=== PATIENT | female | born 1940 | race Asian ===

== ENCOUNTER 2017-06-18 18:11 | Emergency (ER) | payer MEDICARE, OTHER ==
[~2017-06-18] VITALS: Ht 149.9 cm; Wt 77.2 kg
[~2017-06-18 18:11] MED LIST: ALLOPURINOL100 MG PO; AMLODIPINE5 MG PO; ASPIRIN EC81 MG PO; BACTRIM DS1 TAB PO; BUMETANIDE1 MG PO; CIPROFLOXACN500 MG PO; DIOVAN80 MG PO; GABAPENTIN100 MG PO; HUMULIN 70/30 SC; KEFLEX500 M1 PO; METOLAZONE5 MG PO; METRONIDAZOL500 MG PO; NIFEDIPINE ER60 M1 PO; NORVASC2.5 MG PO; NORVASC5 MG PO; NOVOLIN 70/30 SC; PARICALCITOL2 MCG PO; PERCOCET 5/321 COMBO PO; PHOSLO667 M1 PO; PRILOSEC40 MG PO; PROCARDIA XL30 MG PO; SODIUM BICARBI650 MG PO; ULTRAM50 M1 PO; VITAMIN D31000 UNI1 PO; VITAMIN D50000 UN1 PO; ZANTAC 150 PO; ZOCOR20 M1 PO; ZOCOR20 MG PO; ZOFRAN ODT4 MG PO
[2017-06-18 20:21] LABS: HEMATOCRIT 39.3 % (37.0-47.0); HEMOGLOBIN 12.6 g/dl (12.0-16.0); IMMATURE GRANULOCYTES 2.9 % (0.0-1.0); MEAN CELL VOLUME 96.3 fL CALC (80.0-100.0); MEAN CORPUSCULAR HGB 30.9 pG CALC (26.0-32.0); MEAN CORPUSCULAR HGB CONC 32.1 g/L CALC (32.0-36.0); NEUT# 10.12 thou/uL (2.00-7.15); RED BLOOD COUNT 4.08 mill/uL (4.20-5.60); RED CELL DISTRI WIDTH 13.7 % (11.5-15.5)
[2017-06-18 20:34] LABS: ALBUMIN 3.8 g/dL (3.2-5.0); BILIRUBIN, TOTAL 0.4 mg/dL (0.0-1.4); CALCIUM 9.2 mg/dL (8.4-10.2); CREATININE 3.1 mg/dL (0.5-1.0); POTASSIUM 4.1 mmol/l (3.5-5.1); TOTAL PROTEIN 6.7 g/dL (6.3-8.2)
[2017-06-18 22:44] VITALS: BP 144/66
== END 2017-06-18 22:44 | disposition home or self-care (01) ==
LOC: ED 18:11
PROVIDERS: Emergency Medicine
DX: R55 Syncope and collapse (principal); R42 Dizziness and giddiness; I12.0 Hypertensive chronic kidney disease with stage 5 chronic kidney disease or end stage renal disease; N18.6 End stage renal disease; Z99.2 Dependence on renal dialysis; Y92.531 Health care provider office as the place of occurrence of the external cause

== ENCOUNTER 2017-08-29 23:05 | Emergency (ER) | payer MEDICARE, OTHER ==
[~2017-08-29] VITALS: Ht 149.9 cm; Wt 75.6 kg
[2017-08-30 00:13] VITALS: BP 158/73
== END 2017-08-30 00:20 | disposition home or self-care (01) ==
LOC: ED 23:05
DX: M79.622 Pain in left upper arm (principal); R22.32 Localized swelling, mass and lump, left upper limb; I12.0 Hypertensive chronic kidney disease with stage 5 chronic kidney disease or end stage renal disease; N18.6 End stage renal disease; Z99.2 Dependence on renal dialysis

== ENCOUNTER 2017-11-13 15:45 | Observation (INO) | payer MEDICARE, OTHER ==
[~2017-11-13] VITALS: Ht 149.9 cm; Wt 56.4 kg
[~2017-11-13 15:45] MED LIST changes: +CLONIDINE0.1 MG PO; +METOPROL TAR25 MG PO
--- NOTE | 2017-11-13 15:46 | NUR ---
AMBULATED TO ER BY DR DANIEL'S STAFF FOR ALTERED MENTAL STATUS. PT PLEASANT. DOES NOT KNOW WHY IS IS HERE OR WHY SHE WENT TO DR DANIEL TODAY. WHEN QUESTIONED, SHE SMILES AND SYAS "I DONT KNOW"...
[2017-11-13 16:19] LABS: HEMATOCRIT 35.5 % (37.0-47.0); HEMOGLOBIN 12.2 g/dl (12.0-16.0); IMMATURE GRANULOCYTES 0.3 % (0.0-1.0); MEAN CELL VOLUME 88.3 fL CALC (80.0-100.0); MEAN CORPUSCULAR HGB 30.3 pG CALC (26.0-32.0); MEAN CORPUSCULAR HGB CONC 34.4 g/L CALC (32.0-36.0); NEUT# 5.72 thou/uL (2.00-7.15); RED BLOOD COUNT 4.02 mill/uL (4.20-5.60); RED CELL DISTRI WIDTH 12.9 % (11.5-15.5)
--- NOTE | 2017-11-13 16:30 | NUR ---
PATIENT ALERT AND ORIENTED TO SELF AND PLACE. WHEN QUESTIONS ABOUT TODAY'S DATE PATIENT ANSWERS "[birth year]" (PATIENT'S BIRTHDAY). MOVES ALL EXTREMITIES WELL, FIRM GRASP. LUNG SOUNDS CLEAR BILATERALLY. LAB AT BEDSIDE.
[2017-11-13 16:38] LABS: ALBUMIN 3.9 g/dL (3.2-5.0); BILIRUBIN, TOTAL 0.8 mg/dL (0.0-1.4); MAGNESIUM 1.9 mg/dL (1.6-2.3); POTASSIUM 4.2 mmol/l (3.5-5.1); TOTAL PROTEIN 7.5 g/dL (6.3-8.2)
[2017-11-13 16:40] LABS: CREATININE 2.3 mg/dL (0.5-1.0)
--- NOTE | 2017-11-13 16:42 | NUR ---
CALL PLACED TO 'S OFFICE, SPOKE TO PETER, REQUEST TO HAVE RX LIST SENT TO ED FAX.
[2017-11-13] MEDS ORDERED: TRAMADOL HCL50 MG PO (17:01)
[2017-11-13] MEDS ORDERED: TRESIBA FL200 UNIT/M SC (17:03)
[2017-11-13] MEDS ORDERED: NOVOLOG FL100 UNIT/M SC (17:04)
--- NOTE | 2017-11-13 17:20 | NUR ---
PATIENT RESTING ON STRETCHER ALERT AND ORIENTED TO SELF AND PLACE. RESPIRATIONS EVEN AND UNLABORED. UPDATED ON PLAN OF CARE AND WAIT TIME. PATIENT REQUESTING TO SPEAK TO DAUGHTER, CALL PLACED TO LARA BOLTON. NO ANSWER, LEFT VOICEMAIL. WILL CONTINUE TO MONITOR PATIENT. NO ATTEMPTS MADE TO GET OU OF BED/ SIDERAILES UP ON BOTH SIDES.
--- NOTE | 2017-11-13 17:48 | NUR ---
PATIENT AMBULATES TO BATHROOM WITH STANDBY ASSIST 50 ML OF DARK YELLOW CLOUDY URINE COLLECTED FOR URINE SAMPLE. BACK TO ROOM, ASSISTED ONTO STRETCHER. CALL LIGHT WITHIN REACH.
[2017-11-13 17:50] LABS: URINE BLOOD DIPSTICK MODERATE (NEGATIVE); URINE COLOR YELLOW; URINE GLUCOSE - DIPSTICK >=1000 mg/dL (NEGATIVE); URINE KETONE TRACE mg/dL (NEGATIVE); URINE LEUK ESTERASE NEGATIVE (NEGATIVE); URINE NITRITE - DIPSTICK NEGATIVE (Negative); URINE PROTEIN - DIPSTICK >=300 mg/dL (NEG-TRACE); URINE UROBILINOGEN - DIPSTICK 0.2 E.U./dL (0.2)
--- NOTE | 2017-11-13 17:51 | NUR ---
AV FISTULA TO LEFT UPPER ARM. LIMB ALERT BAND PLACED TO LEFT WRIST.
[2017-11-13 17:52] LABS: URINE BILIRUBIN - DIPSTICK NEGATIVE (NEGATIVE); URINE CLARITY SL CLOUDY
[2017-11-13 17:57] LABS: URINE SQUAMOUS EPITHELIAL CELL MANY EPI/hpf (0-FEW)
--- NOTE | 2017-11-13 17:58 | NUR ---
REPORT CALLED TO [facility]. REQUEST 15 MINUTES TO DELAY TRANSPORT.
--- NOTE | 2017-11-13 18:05 | NUR ---
MANUAL BP 150/70 HR 55. PATIENT MEDICATED WITH 50 MG OF METOPROLOL PO GIVEN PER HOME MED.
--- NOTE | 2017-11-13 18:15 | NUR ---
PATIENT TRANSPORTED TO [facility] WITH TELE IN PLACE. BEDSIDE REPORT GIVEN TO [facility]. CARE RELINQUISHED.
[2017-11-13 18:24] VITALS: BP 171/54
--- NOTE | 2017-11-13 18:26 | NUR ---
ASSESSMENT DONE RESPS EVEN AND UNLABORED. TELE IN PLACE. PT IS A&O X2 ,TO SELF AND PLACE. PT IS CONFUSED. PT HAS A LEFT ARM FISTULA THAT THRILL AND HEAR THE BRUIT. SAFETY PRECAUTIONS REINFORCED AND CALL LIGHT IN REACH.
--- NOTE | 2017-11-13 19:45 | NUR ---
PT RESTING IN BED AWAKE. DAUGHTER IN ROOM. PT IS ALERT AND ORIENTED X3. PERRLA. SHIFT ASSESSMENT COMPLETED AT THIS TIME. IV PATENT. TELE IN PLACE. CALL LIGHT IN REACH.PT VERBALIZED UNDERSTANDING OF CALL LIGHT. PLAN OF CARE REVIEWD WITH PT AND DAUGHTER. WILL CONTINUE TO MONITOR
[2017-11-13 20:03] VITALS: BP 139/82
--- NOTE | 2017-11-13 23:15 | NUR ---
ER CALLED AND STATED THAT PT WAS OFF OF TELEMETRY. PT HAD TAKEN TELE BOX OFF AND PLACED IT ON BATHROOM COUNTER. PT STATES THAT SHE DOES NOT REMEMBER DOING THIS. INSTRUCTED PT THAT TELE HAD TO STAY IN PLACE. PT VERBALIZED UNDERSTANDING. TURNED BED ALARM ON FOR PT SAFETY. CALL LIGHT IN REACH. WILL CONTINUE TO MONITOR
[2017-11-14] VITALS (7 sets, daily range): BP systolic 120–207; BP diastolic 40–84
--- NOTE | 2017-11-14 | NUR ---
PT RESTING IN BED WITH EYES CLOSED. RESP ARE EVEN AND UNLABORED. TELE IN PLACE. NO DISTRESS NOTED. BED ALARM IN PLACE. WILL CONTINUE TO MONITOR
--- NOTE | 2017-11-14 04:00 | NUR ---
PT RESTING IN BED WITH EYES CLOSED. RESP ARE EVEN AND UNLABORED. NO DISTRESS NOTED. CALL LIGHT IN REACH. WILL CONTINUE TO MONITOR
--- NOTE | 2017-11-14 07:11 | NUR ---
REPORT RECEIVED BY FRANK. PT IS SLEEPING ON HER LEFT SIDE WITH NO S/S OF DISTRESS NOTED. CALL LIGHT IN REACH.
--- NOTE | 2017-11-14 08:00 | NUR ---
PT IS SITTING IN THE SIDE OF THE BED. ASSESSMENT DONE TELE IN PLACE.RESPS EVEN AND UNLABORED. PT DENIES PAIN AT THIS TIME. # 20 RAC THAT APPEARS HEALTHY. LEFT ARM FISTULA THRILL+ AND BRUIT +. SAFETY PRECAUTIONS REINFORCED AND CALL LIGHT IN REACH. BED ALARM IN PLACE FOR SAFETY.
[2017-11-14 09:09] LABS: MAGNESIUM 1.9 mg/dL (1.6-2.3); POTASSIUM 3.9 mmol/l (3.5-5.1)
[2017-11-14 09:12] LABS: CREATININE 3.4 mg/dL (0.5-1.0)
--- NOTE | 2017-11-14 12:01 | NUR ---
PT IS SITTING IN RECLINER EATING HER LUNCH WITH NO S/S OF DISTRESS NOTED. PT DENIES NEEDS AT THIS TIME. CALL LIGHT IN REACH.
--- NOTE | 2017-11-14 13:15 | NUR ---
DR. BANKS AT BEDSIDE TO ASSESS PT.
--- NOTE | 2017-11-14 16:03 | NUR ---
PT IS RESTING IN ON HER LEFT SIDE WITH NO S/S OF DISTRESS NOTED. CALL LIGHT IN REACH.
--- NOTE | 2017-11-14 19:30 | NUR ---
PATIENT APPEARS SLEEPING POSITIONED ON HER SIDE WITH EYES CLOSED. BED ALARM IN PLACE FOR PATIENT SAFETY. CALL LIGHT IN REACH. WILL CONT TO MONITOR.
--- NOTE | 2017-11-14 21:29 | NUR ---
BP-207/62, [id number] WITH APRESOLINE 10MG IVP ORDERED FOR HTN. [id number]-COVERED WITH NOVALOG PER [facility] COVERAGE. ASSISTED TO BR TO VOID MODERATE AMT OF ELLEN URINE-STEADY GAIT. HS SNACK PROVIDED. BED ALARM IN PLACE FOR PATIENT SAFETY. REINFORCED SAFETY PRECAUTIONS. CALL LIGHT IN REACH. WILL CONT TO MONITOR.
--- NOTE | 2017-11-14 22:15 | NUR ---
BP-127/40, HR-64. RESTING IN BED. NO COM[PLAINTS/ IV SITE TO RIGHT AC INTACT-APPEARS HEALTHY. BED ALARM IN PLACE. CALL IGHT IN REACH. WILL CONT TO MONITOR.
--- NOTE | 2017-11-15 | NUR ---
BED ALARM GOING OFF-PATIENT REMAINS CONFUSED TO PLACE AND TIME. ATTEMPT TO REORIENT PATIENT WITH LITTLE SUCCESS. PATIENT REMAINS PLEASANT-WANTS TO SIT UP IN CHAIR. ASSISTED TO CHAIR AND ALARM PLACE FOR PATIENT SAFETY. CALL LIGHT IN REACH. WILL CONT TO MONITOR.
[2017-11-15 00:15] VITALS: BP 145/58
--- NOTE | 2017-11-15 04:04 | NUR ---
PATIENT BACK IN BED AT THIS TIME RESTING QUIETLY AT THIS TIME. BED ALARM IN PLACE FOR PATIENT SAFETY. CALL LIGHT IN REACH. WILL CONT TO MONITOR.
[2017-11-15 04:40] VITALS: BP 149/46
[2017-11-15 05:21] LABS: CREATININE 4.3 mg/dL (0.5-1.0); POTASSIUM 3.7 mmol/l (3.5-5.1)
[2017-11-15 05:23] LABS: ALBUMIN 2.8 g/dL (3.2-5.0)
[2017-11-15 07:43] VITALS: BP 151/44
--- NOTE | 2017-11-15 07:43 | NUR ---
PT RESTING IN BED, NO SIGNS OF DISTRESS NOTED, RESP EVEN AND UNLABORED. PT ALERT TO SELF. ASSESSMENT COMPLETED, BED ALARM X1, CONTINUE TO MONITOR.
--- NOTE | 2017-11-15 07:57 | NUR ---
PT RESTING IN BED EASILY AROUSED TO VERBAL STIMULI, ALERT TO SELF. VITALS OBTAINED, MEDICATED PER AUG. PT HAS A AV FISTULA TO MACHO TRHILL+,BRUITT+ LAST TX 11/13/17. ASSESSMENT COMPLETED AT THIS TIME, PT SAT UP TO EAT BREAKFAST, VOICES NO NEEDS OR COMPLAINTS AT THIS TIME, CALL LIGHT IN REACH, BED ALARM X1, CONTINUE TO MONITOR.
[2017-11-15 09:04] VITALS: BP 151/44
--- NOTE | 2017-11-15 10:47 | NUR ---
ORDERS FOR DISCHARGE, IV SITE REMOVED, CATHETER INTACT. PT TOLERATED WELL. BED ALARM IN PLACE, TRANSPORT CALLED FOR PT TO BE TAKEN TO DIALYSIS. ETA 1100. CONTINUE TO MONITOR.
--- NOTE | 2017-11-15 12:10 | NUR ---
Discharge instructions given. Patient verbalizes understanding of same. Discharged in stable condition via Wheelchair to Home with *Other. All belongings sent with pt.
== END 2017-11-15 11:00 | disposition home health service (06) ==
LOC: ED 15:45 → ED-I 17:14 → ED 17:25 → MS2 17:26
PROVIDERS: Family Medicine; Internal Medicine; Nurse Practitioner Family; ADMIT Internal Medicine; ATTEND Internal Medicine
DX: G93.40 Encephalopathy, unspecified (principal); E11.22 Type 2 diabetes mellitus with diabetic chronic kidney disease; I12.0 Hypertensive chronic kidney disease with stage 5 chronic kidney disease or end stage renal disease; N18.6 End stage renal disease; E78.5 Hyperlipidemia, unspecified; Z99.2 Dependence on renal dialysis; Z79.4 Long term (current) use of insulin

== ENCOUNTER 2017-11-17 16:22 | Emergency (ER) | payer MEDICARE, OTHER ==
[~2017-11-17] VITALS: Ht 149.9 cm; Wt 59.0 kg
[~2017-11-17 16:22] MED LIST changes: +NOVOLOG FL100 UNIT/M SC; +TRAMADOL HCL50 MG PO; +TRESIBA FL200 UNIT/M SC
[2017-11-17 17:00] LABS: HEMATOCRIT 31.7 % (37.0-47.0); HEMOGLOBIN 10.7 g/dl (12.0-16.0); IMMATURE GRANULOCYTES 0.2 % (0.0-1.0); MEAN CELL VOLUME 90.6 fL CALC (80.0-100.0); MEAN CORPUSCULAR HGB 30.6 pG CALC (26.0-32.0); MEAN CORPUSCULAR HGB CONC 33.8 g/L CALC (32.0-36.0); NEUT# 3.54 thou/uL (2.00-7.15); RED BLOOD COUNT 3.5 mill/uL (4.20-5.60)
[2017-11-17 17:12] LABS: BILIRUBIN, TOTAL 0.6 mg/dL (0.0-1.4); CREATININE 4.6 mg/dL (0.5-1.0); MAGNESIUM 1.9 mg/dL (1.6-2.3); TOTAL PROTEIN 6.4 g/dL (6.3-8.2)
[2017-11-17 17:15] LABS: INTERNATIONAL NORMALIZED RATIO 0.9 RATIO (0.7-1.3)
[2017-11-17 17:42] LABS: TSH, 3RD GENERATION 1.62 uIU/mL (0.47 - 4.68)
[2017-11-17 17:50] LABS: ALBUMIN 3.4 g/dL (3.2-5.0); POTASSIUM 5.3 mmol/l (3.5-5.1)
[2017-11-17 18:17] LABS: URINE BILIRUBIN - DIPSTICK NEGATIVE (NEGATIVE); URINE BLOOD DIPSTICK SMALL (NEGATIVE); URINE COLOR YELLOW; URINE GLUCOSE - DIPSTICK >=1000 mg/dL (NEGATIVE); URINE KETONE NEGATIVE (NEGATIVE); URINE LEUK ESTERASE NEGATIVE (NEGATIVE); URINE NITRITE - DIPSTICK NEGATIVE (Negative); URINE PROTEIN - DIPSTICK >=300 mg/dL (NEG-TRACE); URINE UROBILINOGEN - DIPSTICK 0.2 E.U./dL (0.2)
[2017-11-17 18:18] LABS: URINE CLARITY CLEAR
[2017-11-17 18:24] LABS: URINE SQUAMOUS EPITHELIAL CELL FEW EPI/hpf (0-FEW); URINE WBC 0-2 WBC/hpf (0-5)
[2017-11-17 19:32] VITALS: BP 174/75
== END 2017-11-17 19:32 ==
LOC: ED 16:22
PROVIDERS: Family Medicine
DX: E11.00 Type 2 diabetes mellitus with hyperosmolarity without nonketotic hyperglycemic-hyperosmolar coma (NKHHC) (principal); Z79.4 Long term (current) use of insulin; R41.82 Altered mental status, unspecified; I12.0 Hypertensive chronic kidney disease with stage 5 chronic kidney disease or end stage renal disease; N18.6 End stage renal disease; Z99.2 Dependence on renal dialysis

== ENCOUNTER → 2018-08-24 | Outpatient (REF) | payer MEDICARE, OTHER ==
[~2018-08-24] MED LIST changes: +LANTUS SOL100 UNIT/M SC; +LISINOPRIL40 MG PO; +NEPHRO-VITE PO
[2018-08-24 12:33] LABS: URINE BILIRUBIN - DIPSTICK NEGATIVE (NEGATIVE); URINE BLOOD DIPSTICK NEGATIVE (NEGATIVE); URINE COLOR YELLOW; URINE GLUCOSE - DIPSTICK NEGATIVE (NEGATIVE); URINE KETONE NEGATIVE (NEGATIVE); URINE LEUK ESTERASE NEGATIVE (Negative); URINE NITRITE - DIPSTICK NEGATIVE (Negative); URINE PH 6.5 (4.5-8.0); URINE PROTEIN - DIPSTICK 100 mg/dL (NEG-TRACE); URINE UROBILINOGEN - DIPSTICK 0.2 E.U./dL (0.2)
[2018-08-24 12:35] LABS: URINE CLARITY HAZY; URINE EPITHELIAL CELLS MANY EPI/hpf (0-FEW); URINE WBC 0-2 WBC/hpf (0-5)
[2018-08-24 12:36] LABS: URINE BACTERIA FEW hpf; URINE MUCUS MANY hpf (NONE-FEW)
== END | disposition home or self-care (01) ==
LOC: LABSPEC 11:31
PROVIDERS: ATTEND Internal Medicine
DX: R30.0 Dysuria (principal); B95.2 Enterococcus as the cause of diseases classified elsewhere

== ENCOUNTER 2018-09-01 00:34 | Emergency (ER) | payer MEDICARE, OTHER ==
[~2018-09-01] VITALS: Ht 149.9 cm; Wt 81.8 kg
[~2018-09-01 00:34] MED LIST changes: -LANTUS SOL100 UNIT/M SC; -LISINOPRIL40 MG PO; -NEPHRO-VITE PO
[2018-09-01] MEDS ORDERED: LISINOPRIL40 MG PO (00:48)
[2018-09-01] MEDS ORDERED: NEPHRO-VITE PO (00:50)
[2018-09-01] MEDS ORDERED: NOVOLOG FL100 UNIT/M SC (00:52)
[2018-09-01] MEDS ORDERED: LANTUS SOL100 UNIT/M SC (00:54)
[2018-09-01 01:51] LABS: HEMATOCRIT 33.4 % (37.0-47.0); HEMOGLOBIN 11.1 g/dl (12.0-16.0); IMMATURE GRANULOCYTES 0.3 % (0.0-5.0); MEAN CORPUSCULAR HGB 32.2 pG CALC (26.0-32.0); MEAN CORPUSCULAR HGB CONC 33.2 g/L CALC (32.0-36.0); NEUT# 4.47 thou/uL (2.00-7.15); RED BLOOD COUNT 3.45 mill/uL (4.20-5.60); RED CELL DISTRI WIDTH 12.4 % (11.5-15.5)
[2018-09-01 02:09] LABS: ALBUMIN 3.7 g/dL (3.2-5.0); BILIRUBIN, TOTAL 0.3 mg/dL (0.0-1.4); TOTAL PROTEIN 6.1 g/dL (6.3-8.2)
[2018-09-01 02:15] LABS: CREATININE 7.3 mg/dL (0.5-1.0); MEAN CELL VOLUME 96.8 fL CALC (80.0-100.0)
[2018-09-01 04:39] LABS: URINE BILIRUBIN - DIPSTICK NEGATIVE (NEGATIVE); URINE BLOOD DIPSTICK TRACE-LYSED (NEGATIVE); URINE COLOR YELLOW; URINE GLUCOSE - DIPSTICK NEGATIVE (NEGATIVE); URINE KETONE NEGATIVE (NEGATIVE); URINE LEUK ESTERASE NEGATIVE (NEGATIVE); URINE NITRITE - DIPSTICK NEGATIVE (Negative); URINE PH 6.5 (4.5-8.0); URINE PROTEIN - DIPSTICK 100 mg/dL (NEG-TRACE); URINE UROBILINOGEN - DIPSTICK 0.2 E.U./dL (0.2)
[2018-09-01 06:00] LABS: URINE RBC 0-2 RBC/hpf (0-5)
[2018-09-01 06:01] LABS: URINE SQUAMOUS EPITHELIAL CELL FEW EPI/hpf (0-FEW)
[2018-09-01 14:30] VITALS: BP 157/65
== END 2018-09-01 14:30 | disposition short-term general hospital (02) ==
LOC: ED 00:34
PROVIDERS: Emergency Medicine
DX: R55 Syncope and collapse (principal); I12.0 Hypertensive chronic kidney disease with stage 5 chronic kidney disease or end stage renal disease; N18.6 End stage renal disease; Z99.2 Dependence on renal dialysis; R53.1 Weakness; Y92.129 Unspecified place in nursing home as the place of occurrence of the external cause

== ENCOUNTER 2018-12-13 07:04 | Observation (INO) | payer MEDICARE, OTHER ==
[~2018-12-13] VITALS: Ht 149.9 cm; Wt 68.5 kg
[~2018-12-13 07:04] MED LIST changes: +LANTUS SOL100 UNIT/M SC; +LISINOPRIL40 MG PO; +NEPHRO-VITE PO
--- NOTE | 2018-12-13 07:04 | NUR ---
PT TO ROOM VIA EMS STRETCHER. PT ALERT AND TALKING. ACCUCHECK COMPLETED 167.
[2018-12-13 07:47] LABS: HEMATOCRIT 39.3 % (37.0-47.0); HEMOGLOBIN 12.9 g/dl (12.0-16.0); IMMATURE GRANULOCYTES 0.3 % (0.0-5.0); MEAN CELL VOLUME 96.3 fL CALC (80.0-100.0); MEAN CORPUSCULAR HGB 31.6 pG CALC (26.0-32.0); MEAN CORPUSCULAR HGB CONC 32.8 g/L CALC (32.0-36.0); NEUT# 4.97 thou/uL (2.00-7.15); RED BLOOD COUNT 4.08 mill/uL (4.20-5.60); RED CELL DISTRI WIDTH 13.4 % (11.5-15.5)
--- NOTE | 2018-12-13 08:00 | NUR ---
PT ATE COMPLETE MEAL TRAY WITH MINIMAL ASSISTANCE. DAUGHTER AT BEDSIDE. BOTH INFORMED OF PT STATUS AND PLAN OF CARE.
[2018-12-13 08:07] LABS: ALBUMIN 4.2 g/dL (3.2-5.0); POTASSIUM 4.9 mmol/l (3.5-5.1)
[2018-12-13 08:10] LABS: BILIRUBIN, TOTAL 0.9 mg/dL (0.0-1.4); CREATININE 4.9 mg/dL (0.5-1.0); TOTAL PROTEIN 7.4 g/dL (6.3-8.2)
--- NOTE | 2018-12-13 08:20 | NUR ---
ACCUCHECK RECHECK 205. D5 CONTINUES TO INFUSE WITH NO DIFFICULTY. DAUGHTER AT BEDSIDE. PT C/O DIZZINESS AT THIS TIME. MD NOTIFIED.
[2018-12-13] MEDS ORDERED: LANTUS SOL100 UNIT/M SC (08:43)
[2018-12-13] MEDS ORDERED: NOVOLOG MIX100 U/ML SC (08:44)
--- NOTE | 2018-12-13 09:30 | NUR ---
ACCANA ROSA Montenegro MD NOTIFIED AND VERBAL ORDER TO TITRATE D5 INFSUION TO 100 MLS/HOUR. PT DENIES ANY DIZZINESS AT THIS TIME AND IS AWARE OF NEED FOR URINE SAMPLE. PT UNABLE TO PROVIDE URINE AT THIS TIME.
--- NOTE | 2018-12-13 10:30 | NUR ---
PT RESTING IN STRETCHER WITH EYES CLOSED. VSS. PT DENIES ANY NEEDS AT THIS TIME.
--- NOTE | 2018-12-13 11:15 | NUR ---
PER MD ORDER TO STOP D5 INFUSION.
--- NOTE | 2018-12-13 11:30 | NUR ---
VERBAL ORDER TO STOP D5 INFUSION. INFUSION DC'D BY Erwin LOPEZ RN.
--- NOTE | 2018-12-13 11:40 | NUR ---
MD AT BEDSIDE TO DISCUSS RESULTS AND PLAN OF ADMISSION.
--- NOTE | 2018-12-13 12:07 | NUR ---
REPORT CALLED TO DOV FOX.
--- NOTE | 2018-12-13 12:35 | NUR ---
PT STATUS UPDATE TO DOV FOX.
[2018-12-13 12:40] VITALS: BP 184/68
--- NOTE | 2018-12-13 12:40 | NUR ---
Admission Note Report Given to: DOV FOX Transported by: Wheelchair X Stretcher Transported with: X Nurse Transporter X Patent IV O2 Tax Staff Accountant PT TO ROOM 261 VIA STRETCHER IN STABLE CODITION. PT CARE RELINQUISHED TO DOV FOX.
--- NOTE | 2018-12-13 12:55 | NUR ---
PT ARRIVED TO THE UNIT VIA STRETCHER AT 1245 WITH FAMILY
--- NOTE | 2018-12-13 13:05 | NUR ---
PT TRANSPORTED TO HAVE CT SCAN OF ABD/PELVIS. RETURNED AT 1330
--- NOTE | 2018-12-13 13:30 | NUR ---
ASSESSMENT IS COMPLTED: DR. BANKS IN TO VISIT WITH PT AND FAMILY AT 1300. BREATH SOUNDS ARE CLEAR, BILATERALLY, NO C/O SOB, HR IS REG,PULSES ARE STRONG X4, ABD IS SOFT WITH ACTIVE BS. PT AMBULATED TO THE BATHROOM AND GAVE A URINE SAMPLE. CONTINUE TO OBSERVE AND MONITOR.
--- NOTE | 2018-12-13 17:00 | NUR ---
PT IS SITTING IN THE CHAIR NO DISTRESS NOTED. IV SITE IS FREE FROM REDNESS OR EDEMA.
[2018-12-13 17:03] VITALS: BP 171/61
--- NOTE | 2018-12-13 18:23 | NUR ---
PT IS RELAXING IN THE CHAIR NO DISTRESS NOTED
[2018-12-13 19:24] VITALS: BP 99/51
--- NOTE | 2018-12-13 23:51 | NUR ---
Patient resting in bed. No complaints of pain. No S&S of distress. V/S wnl. Breath sounds clear. No change in previous assessment.
[2018-12-14 04:26] VITALS: BP 105/44
[2018-12-14 04:48] LABS: HEMATOCRIT 36.1 % (37.0-47.0); HEMOGLOBIN 11.7 g/dl (12.0-16.0); IMMATURE GRANULOCYTES 0.4 % (0.0-5.0); MEAN CELL VOLUME 96.5 fL CALC (80.0-100.0); MEAN CORPUSCULAR HGB 31.3 pG CALC (26.0-32.0); MEAN CORPUSCULAR HGB CONC 32.4 g/L CALC (32.0-36.0); NEUT# 4.85 thou/uL (2.00-7.15); RED BLOOD COUNT 3.74 mill/uL (4.20-5.60); RED CELL DISTRI WIDTH 13.3 % (11.5-15.5)
[2018-12-14 05:08] LABS: MAGNESIUM 2.1 mg/dL (1.6-2.3)
--- NOTE | 2018-12-14 05:14 | NUR ---
Patient resting in bed. No complaints of pain. V/S wnl. Breath sounds clear. Abdomen soft with active bowel sounds. Patient asking for food. Blood glucose stable. Will continue to monitor patient progress.
--- NOTE | 2018-12-14 05:19 | NUR ---
RECEIVED A PHONE CALL FROM EMERALD DAVILA, CRITICAL CREATININE RESULT, INFORMED NURSE CAROL OF RESULT
[2018-12-14 05:22] LABS: CREATININE 6.6 mg/dL (0.5-1.0)
[2018-12-14 07:35] VITALS: BP 154/44
--- NOTE | 2018-12-14 07:35 | NUR ---
ASSESSMENT IS COMPLETED: IV SITE IS FREE FROM REDNESS OR EDEMA. HR IS REG, PULSES ARE STRONG X4, ABD IS SOFT WITH ACTIVE BS. NO DISTRESS NOTED. CONTINUE TO OBSERVE AND MONITOR.BREATH SOUNDS ARE CLEAR, BILATERALLY.
[2018-12-14 08:50] LABS: URINE BILIRUBIN - DIPSTICK NEGATIVE (NEGATIVE); URINE BLOOD DIPSTICK TRACE-INTACT (NEGATIVE); URINE COLOR YELLOW; URINE GLUCOSE - DIPSTICK 100 mg/dL (NEGATIVE); URINE KETONE NEGATIVE (NEGATIVE); URINE LEUK ESTERASE NEGATIVE (NEGATIVE); URINE NITRITE - DIPSTICK NEGATIVE (Negative); URINE PROTEIN - DIPSTICK 100 mg/dL (NEG-TRACE); URINE UROBILINOGEN - DIPSTICK 0.2 E.U./dL (0.2)
[2018-12-14 09:23] VITALS: BP 154/44
[2018-12-14 09:58] LABS: URINE RBC 0-2 RBC/hpf (0-5)
[2018-12-14 09:59] LABS: URINE EPITHELIAL CELLS FEW EPI/hpf (0-FEW); URINE MUCUS MODERATE hpf (NONE-FEW)
--- NOTE | 2018-12-14 11:35 | NUR ---
IN TO VISIT WITH PT. WILL SEND BACK TO THE [facility].
--- NOTE | 2018-12-14 11:50 | NUR ---
[facility] CALLED BACK AND WILL WAIT UNTIL HER DAUGHTER CALLS BACK
--- NOTE | 2018-12-14 13:22 | NUR ---
[facility] HAS BEEN NOTIFIED ON PT RETURNING TO THEM. IV SITE DISCONTINEUD CATHETER INTACT. NO REDNESS OR EDEMA. DISCHARGE INSTRUCTIONS PRINTED WILL BE GIVEN TO AERONAUTICAL INSPECTOR. CONTINUE TO OBSERVE AND MONITOR.
--- NOTE | 2018-12-14 13:43 | NUR ---
PT'S DAUGHTER CALLED AND INQUIRED PLANS FOR THE PT. WILL GO BACK TO [facility].
--- NOTE | 2018-12-14 13:50 | NUR ---
PT BEING ESCORTED WITH STAFF FROM THE [facility] "SHIRA DIRECTOR". WITH DISCHARGE INSTRUCTIONS.
--- NOTE | 2018-12-14 13:53 | NUR ---
Discharge instructions given. Patient verbalizes understanding of same. Discharged in stable condition via Wheelchair to Home with family. All belongings sent with [facility] WITH STAFF
== END 2018-12-14 13:45 ==
LOC: ED 07:04 → ED-I 11:15 → ED 11:33 → MS2 11:34
PROVIDERS: Emergency Medicine; Nurse Practitioner Family; ADMIT Internal Medicine; ATTEND Internal Medicine
DX: E11.649 Type 2 diabetes mellitus with hypoglycemia without coma (principal); G93.49 Other encephalopathy; I16.0 Hypertensive urgency; I12.0 Hypertensive chronic kidney disease with stage 5 chronic kidney disease or end stage renal disease; E11.22 Type 2 diabetes mellitus with diabetic chronic kidney disease; N18.6 End stage renal disease; F03.90 Unspecified dementia, unspecified severity, without behavioral disturbance, psychotic disturbance, mood disturbance, and anxiety; E78.5 Hyperlipidemia, unspecified; E21.3 Hyperparathyroidism, unspecified; R10.31 Right lower quadrant pain; Z99.2 Dependence on renal dialysis; Z79.4 Long term (current) use of insulin

== ENCOUNTER 2019-01-03 20:44 | Emergency (ER) | payer MEDICARE, OTHER ==
[~2019-01-03] VITALS: Ht 149.9 cm; Wt 72.0 kg
[~2019-01-03 20:44] MED LIST changes: +NOVOLOG MIX100 U/ML SC
[2019-01-03 21:15] LABS: HEMATOCRIT 36.2 % (37.0-47.0); HEMOGLOBIN 11.9 g/dl (12.0-16.0); IMMATURE GRANULOCYTES 0.1 % (0.0-5.0); MEAN CELL VOLUME 94.8 fL CALC (80.0-100.0); MEAN CORPUSCULAR HGB 31.2 pG CALC (26.0-32.0); MEAN CORPUSCULAR HGB CONC 32.9 g/L CALC (32.0-36.0); NEUT# 4.09 thou/uL (2.00-7.15); RED BLOOD COUNT 3.82 mill/uL (4.20-5.60)
[2019-01-03 21:29] LABS: ALBUMIN 4.1 g/dL (3.2-5.0); BILIRUBIN, TOTAL 0.6 mg/dL (0.0-1.4); TOTAL PROTEIN 7.4 g/dL (6.3-8.2)
[2019-01-03 21:31] LABS: CREATININE 5.9 mg/dL (0.5-1.0); POTASSIUM 5.7 mmol/l (3.5-5.1)
[2019-01-03 23:41] VITALS: BP 150/76
== END 2019-01-03 23:43 | disposition home or self-care (01) ==
LOC: ED 20:44
PROVIDERS: Emergency Medicine
DX: R07.89 Other chest pain (principal); E11.22 Type 2 diabetes mellitus with diabetic chronic kidney disease; I12.0 Hypertensive chronic kidney disease with stage 5 chronic kidney disease or end stage renal disease; N18.6 End stage renal disease; Z99.2 Dependence on renal dialysis; Z79.4 Long term (current) use of insulin; E21.3 Hyperparathyroidism, unspecified

== ENCOUNTER 2019-01-13 06:59 | Emergency (ER) | payer MEDICARE, OTHER ==
[~2019-01-13] VITALS: Ht 149.9 cm; Wt 75.0 kg
[2019-01-13 07:26] LABS: IMMATURE GRANULOCYTES 0.3 % (0.0-5.0); MEAN CELL VOLUME 94.4 fL CALC (80.0-100.0); MEAN CORPUSCULAR HGB 30.6 pG CALC (26.0-32.0); MEAN CORPUSCULAR HGB CONC 32.4 g/L CALC (32.0-36.0); NEUT# 5.08 thou/uL (2.00-7.15); RED BLOOD COUNT 3.6 mill/uL (4.20-5.60); RED CELL DISTRI WIDTH 12.7 % (11.5-15.5)
[2019-01-13 08:07] LABS: POTASSIUM 5.3 mmol/l (3.5-5.1)
[2019-01-13 08:08] LABS: CREATININE 5.7 mg/dL (0.5-1.0)
[2019-01-13 09:42] VITALS: BP 151/63
== END 2019-01-13 10:06 | disposition home or self-care (01) ==
LOC: ED 06:59
PROVIDERS: Family Medicine
DX: E11.649 Type 2 diabetes mellitus with hypoglycemia without coma (principal); E11.22 Type 2 diabetes mellitus with diabetic chronic kidney disease; I12.0 Hypertensive chronic kidney disease with stage 5 chronic kidney disease or end stage renal disease; N18.6 End stage renal disease; Z99.2 Dependence on renal dialysis; Z79.4 Long term (current) use of insulin

== ENCOUNTER 2019-01-16 00:01 | Emergency (ER) | payer MEDICARE, OTHER ==
[~2019-01-16] VITALS: Ht 149.9 cm; Wt 90.0 kg
[2019-01-16 01:24] VITALS: BP 151/49
== END 2019-01-16 01:39 | disposition home or self-care (01) ==
LOC: ED 00:01
DX: R07.81 Pleurodynia (principal); E11.22 Type 2 diabetes mellitus with diabetic chronic kidney disease; I12.0 Hypertensive chronic kidney disease with stage 5 chronic kidney disease or end stage renal disease; N18.6 End stage renal disease; Z99.2 Dependence on renal dialysis; Z79.4 Long term (current) use of insulin; Z90.11 Acquired absence of right breast and nipple

== ENCOUNTER 2019-01-17 06:24 | Emergency (ER) | payer MEDICARE, OTHER ==
[~2019-01-17] VITALS: Ht 149.9 cm; Wt 79.5 kg
[2019-01-17 07:26] LABS: HEMATOCRIT 34.6 % (37.0-47.0); HEMOGLOBIN 11.2 g/dl (12.0-16.0); IMMATURE GRANULOCYTES 0.5 % (0.0-5.0); MEAN CELL VOLUME 95.1 fL CALC (80.0-100.0); MEAN CORPUSCULAR HGB 30.8 pG CALC (26.0-32.0); MEAN CORPUSCULAR HGB CONC 32.4 g/L CALC (32.0-36.0); NEUT# 6.7 thou/uL (2.00-7.15); RED BLOOD COUNT 3.64 mill/uL (4.20-5.60); RED CELL DISTRI WIDTH 12.7 % (11.5-15.5)
[2019-01-17 07:33] LABS: BILIRUBIN, TOTAL 0.4 mg/dL (0.0-1.4); CREATININE 4.9 mg/dL (0.5-1.0); TOTAL PROTEIN 7.1 g/dL (6.3-8.2)
[2019-01-17 07:42] LABS: POTASSIUM 4.1 mmol/l (3.5-5.1)
[2019-01-17 08:24] VITALS: BP 123/69
== END 2019-01-17 08:45 ==
LOC: ED 06:24
PROVIDERS: Emergency Medicine
DX: E11.649 Type 2 diabetes mellitus with hypoglycemia without coma (principal); E11.22 Type 2 diabetes mellitus with diabetic chronic kidney disease; I12.0 Hypertensive chronic kidney disease with stage 5 chronic kidney disease or end stage renal disease; N18.6 End stage renal disease; F03.90 Unspecified dementia, unspecified severity, without behavioral disturbance, psychotic disturbance, mood disturbance, and anxiety; Z99.2 Dependence on renal dialysis; Z79.4 Long term (current) use of insulin

== ENCOUNTER 2019-01-23 00:02 | Emergency (ER) | payer MEDICARE, OTHER ==
[~2019-01-23] VITALS: Ht 149.9 cm; Wt 90.0 kg
[2019-01-23] MEDS ORDERED: ZOCOR20 M1 PO (00:34)
[2019-01-23 00:45] LABS: HEMATOCRIT 30.6 % (37.0-47.0); HEMOGLOBIN 10.1 g/dl (12.0-16.0); IMMATURE GRANULOCYTES 0.3 % (0.0-5.0); MEAN CELL VOLUME 94.7 fL CALC (80.0-100.0); MEAN CORPUSCULAR HGB 31.3 pG CALC (26.0-32.0); NEUT# 3.73 thou/uL (2.00-7.15); RED BLOOD COUNT 3.23 mill/uL (4.20-5.60); RED CELL DISTRI WIDTH 12.6 % (11.5-15.5)
[2019-01-23 00:58] LABS: ALBUMIN 3.7 g/dL (3.2-5.0); BILIRUBIN, TOTAL 0.3 mg/dL (0.0-1.4); TOTAL PROTEIN 6.2 g/dL (6.3-8.2)
[2019-01-23 01:00] LABS: CREATININE 5.6 mg/dL (0.5-1.0); POTASSIUM 5.5 mmol/l (3.5-5.1)
[2019-01-23] MEDS ORDERED: LANTUS SOL100 UNIT/M SC (01:48)
[2019-01-23 02:50] VITALS: BP 137/60
== END 2019-01-23 02:55 ==
LOC: ED 00:02
PROVIDERS: Family Medicine
DX: E11.65 Type 2 diabetes mellitus with hyperglycemia (principal); I12.0 Hypertensive chronic kidney disease with stage 5 chronic kidney disease or end stage renal disease; E11.22 Type 2 diabetes mellitus with diabetic chronic kidney disease; N18.6 End stage renal disease; F03.90 Unspecified dementia, unspecified severity, without behavioral disturbance, psychotic disturbance, mood disturbance, and anxiety; E21.3 Hyperparathyroidism, unspecified; Z99.2 Dependence on renal dialysis; Z79.4 Long term (current) use of insulin

== ENCOUNTER 2019-02-22 01:07 | Emergency (ER) | payer MEDICARE, OTHER ==
[~2019-02-22] VITALS: Ht 149.9 cm; Wt 90.0 kg
--- NOTE | 2019-02-22 01:25 | NUR ---
BREATHING TREATMENT GIVEN WITH MARI PIRESONEB. BREATHING TECH. FOR GOOD DEPOSITION TO THE LUNGS.
[2019-02-22] MEDS ORDERED: NEPHRO-VIT1 PO (01:31)
[2019-02-22 01:44] LABS: HEMATOCRIT 33.8 % (37.0-47.0); IMMATURE GRANULOCYTES 0.3 % (0.0-5.0); MEAN CELL VOLUME 97.4 fL CALC (80.0-100.0); MEAN CORPUSCULAR HGB 31.7 pG CALC (26.0-32.0); MEAN CORPUSCULAR HGB CONC 32.5 g/L CALC (32.0-36.0); NEUT# 3.79 thou/uL (2.00-7.15); RED BLOOD COUNT 3.47 mill/uL (4.20-5.60); RED CELL DISTRI WIDTH 14.3 % (11.5-15.5)
[2019-02-22 02:06] LABS: ALBUMIN 3.8 g/dL (3.2-5.0); BILIRUBIN, TOTAL 0.4 mg/dL (0.0-1.4); POTASSIUM 4.5 mmol/l (3.5-5.1); TOTAL PROTEIN 6.7 g/dL (6.3-8.2)
[2019-02-22 02:09] LABS: CREATININE 5.8 mg/dL (0.5-1.0)
[2019-02-22 02:41] VITALS: BP 149/67
== END 2019-02-22 02:55 ==
LOC: ED 01:07
PROVIDERS: Family Medicine
DX: M94.0 Chondrocostal junction syndrome [Tietze] (principal); E11.22 Type 2 diabetes mellitus with diabetic chronic kidney disease; I12.0 Hypertensive chronic kidney disease with stage 5 chronic kidney disease or end stage renal disease; N18.6 End stage renal disease; F03.90 Unspecified dementia, unspecified severity, without behavioral disturbance, psychotic disturbance, mood disturbance, and anxiety; Z99.2 Dependence on renal dialysis; Z79.4 Long term (current) use of insulin; R07.89 Other chest pain

== ENCOUNTER 2019-03-01 03:58 | Emergency (ER) | payer MEDICARE, OTHER ==
[~2019-03-01] VITALS: Ht 149.9 cm; Wt 86.0 kg
[~2019-03-01 03:58] MED LIST changes: +NEPHRO-VIT1 PO
[2019-03-01 04:23] LABS: HEMATOCRIT 34.6 % (37.0-47.0); HEMOGLOBIN 11.2 g/dl (12.0-16.0); IMMATURE GRANULOCYTES 0.3 % (0.0-5.0); MEAN CELL VOLUME 95.8 fL CALC (80.0-100.0); MEAN CORPUSCULAR HGB CONC 32.4 g/L CALC (32.0-36.0); NEUT# 4.56 thou/uL (2.00-7.15); RED BLOOD COUNT 3.61 mill/uL (4.20-5.60); RED CELL DISTRI WIDTH 13.7 % (11.5-15.5)
[2019-03-01 04:39] LABS: ALBUMIN 3.5 g/dL (3.2-5.0); BILIRUBIN, TOTAL 0.4 mg/dL (0.0-1.4); POTASSIUM 4.1 mmol/l (3.5-5.1); TOTAL PROTEIN 6.2 g/dL (6.3-8.2)
[2019-03-01 06:18] LABS: URINE BILIRUBIN - DIPSTICK NEGATIVE (NEGATIVE); URINE BLOOD DIPSTICK SMALL (NEGATIVE); URINE COLOR ORANGE; URINE GLUCOSE - DIPSTICK 250 mg/dL (NEGATIVE); URINE KETONE NEGATIVE (NEGATIVE); URINE NITRITE - DIPSTICK NEGATIVE (Negative); URINE PH 7.5 (4.5-8.0); URINE PROTEIN - DIPSTICK >=300 mg/dL (NEG-TRACE); URINE SPECIFIC GRAVITY 1.015; URINE UROBILINOGEN - DIPSTICK 0.2 E.U./dL (0.2)
[2019-03-01 06:22] LABS: URINE LEUK ESTERASE NEGATIVE (NEGATIVE)
[2019-03-01 06:25] LABS: URINE EPITHELIAL CELLS MODERATE EPI/hpf (0-FEW)
[2019-03-01 06:26] LABS: URINE BACTERIA FEW hpf
[2019-03-01 06:37] VITALS: BP 189/81
== END 2019-03-01 06:37 | disposition home or self-care (01) ==
LOC: ED 03:58
PROVIDERS: Emergency Medicine
DX: I12.0 Hypertensive chronic kidney disease with stage 5 chronic kidney disease or end stage renal disease (principal); N18.6 End stage renal disease; Z99.2 Dependence on renal dialysis; E11.9 Type 2 diabetes mellitus without complications; Z79.4 Long term (current) use of insulin; J90 Pleural effusion, not elsewhere classified; R30.0 Dysuria

== ENCOUNTER 2019-03-15 09:49 | Emergency (ER) | payer MEDICARE, OTHER ==
[~2019-03-15] VITALS: Ht 149.9 cm; Wt 65.0 kg
[2019-03-15 10:56] LABS: HEMATOCRIT 29.5 % (37.0-47.0); HEMOGLOBIN 9.6 g/dl (12.0-16.0); IMMATURE GRANULOCYTES 0.1 % (0.0-5.0); MEAN CELL VOLUME 96.4 fL CALC (80.0-100.0); MEAN CORPUSCULAR HGB 31.4 pG CALC (26.0-32.0); MEAN CORPUSCULAR HGB CONC 32.5 g/L CALC (32.0-36.0); NEUT# 5.66 thou/uL (2.00-7.15); RED BLOOD COUNT 3.06 mill/uL (4.20-5.60); RED CELL DISTRI WIDTH 13.2 % (11.5-15.5)
[2019-03-15 11:37] LABS: ALBUMIN 3.3 g/dL (3.2-5.0); BILIRUBIN, TOTAL 0.3 mg/dL (0.0-1.4); POTASSIUM 4.3 mmol/l (3.5-5.1); TOTAL PROTEIN 5.8 g/dL (6.3-8.2)
[2019-03-15 11:40] LABS: CREATININE 6.6 mg/dL (0.5-1.0)
[2019-03-15 12:17] VITALS: BP 193/71
== END 2019-03-15 12:45 | disposition home or self-care (01) ==
LOC: ED 09:49
DX: I13.2 Hypertensive heart and chronic kidney disease with heart failure and with stage 5 chronic kidney disease, or end stage renal disease (principal); I50.9 Heart failure, unspecified; E11.22 Type 2 diabetes mellitus with diabetic chronic kidney disease; N18.6 End stage renal disease; N25.81 Secondary hyperparathyroidism of renal origin; F03.90 Unspecified dementia, unspecified severity, without behavioral disturbance, psychotic disturbance, mood disturbance, and anxiety; Z99.2 Dependence on renal dialysis; Z79.4 Long term (current) use of insulin

== ENCOUNTER 2019-03-18 07:41 | Emergency (ER) | payer MEDICARE ==
[~2019-03-18] VITALS: Ht 149.9 cm; Wt 77.0 kg
[~2019-03-18 07:41] MED LIST changes: -METOPROL TAR25 MG PO; +TOPROL XL PO
[2019-03-18 08:52] LABS: CREATININE 7.6 mg/dL (0.5-1.0)
[2019-03-18 08:59] LABS: HEMATOCRIT 27.6 % (37.0-47.0); HEMOGLOBIN 8.8 g/dl (12.0-16.0); IMMATURE GRANULOCYTES 0.3 % (0.0-5.0); MEAN CELL VOLUME 97.9 fL CALC (80.0-100.0); MEAN CORPUSCULAR HGB 31.2 pG CALC (26.0-32.0); MEAN CORPUSCULAR HGB CONC 31.9 g/L CALC (32.0-36.0); NEUT# 6.79 thou/uL (2.00-7.15); RED BLOOD COUNT 2.82 mill/uL (4.20-5.60); RED CELL DISTRI WIDTH 13.1 % (11.5-15.5)
[2019-03-18 10:39] VITALS: BP 203/79
== END 2019-03-18 10:39 ==
LOC: ED 07:41
PROVIDERS: Family Medicine
DX: I21.4 Non-ST elevation (NSTEMI) myocardial infarction (principal); E11.22 Type 2 diabetes mellitus with diabetic chronic kidney disease; I12.0 Hypertensive chronic kidney disease with stage 5 chronic kidney disease or end stage renal disease; N18.6 End stage renal disease; F03.90 Unspecified dementia, unspecified severity, without behavioral disturbance, psychotic disturbance, mood disturbance, and anxiety; Z99.2 Dependence on renal dialysis; Z79.4 Long term (current) use of insulin
CPT/HCPCS: J1644

== ENCOUNTER 2019-03-23 07:24 | Emergency (ER) | payer MEDICARE ==
[~2019-03-23] VITALS: Ht 149.9 cm; Wt 68.2 kg
[2019-03-23 08:28] LABS: HEMATOCRIT 27.5 % (37.0-47.0); HEMOGLOBIN 8.8 g/dl (12.0-16.0); IMMATURE GRANULOCYTES 0.6 % (0.0-5.0); MEAN CELL VOLUME 96.2 fL CALC (80.0-100.0); MEAN CORPUSCULAR HGB 30.8 pG CALC (26.0-32.0); NEUT# 7.17 thou/uL (2.00-7.15); RED BLOOD COUNT 2.86 mill/uL (4.20-5.60); RED CELL DISTRI WIDTH 13.1 % (11.5-15.5)
[2019-03-23] MEDS ORDERED: BRILINTA90 MG PO (08:41)
[2019-03-23 08:43] LABS: ALBUMIN 3.1 g/dL (3.2-5.0); BILIRUBIN, TOTAL 0.4 mg/dL (0.0-1.4); POTASSIUM 4.5 mmol/l (3.5-5.1); TOTAL PROTEIN 5.5 g/dL (6.3-8.2)
[2019-03-23] MEDS ORDERED: ISOSORB MONO60 M1 PO (08:46)
[2019-03-23 09:02] LABS: CREATININE 8.5 mg/dL (0.5-1.0)
[2019-03-23 10:27] VITALS: BP 156/58
== END 2019-03-23 10:28 ==
LOC: ED 07:24
PROVIDERS: Family Medicine
DX: I13.2 Hypertensive heart and chronic kidney disease with heart failure and with stage 5 chronic kidney disease, or end stage renal disease (principal); I50.9 Heart failure, unspecified; J18.9 Pneumonia, unspecified organism; E11.22 Type 2 diabetes mellitus with diabetic chronic kidney disease; N18.6 End stage renal disease; E21.3 Hyperparathyroidism, unspecified; F03.90 Unspecified dementia, unspecified severity, without behavioral disturbance, psychotic disturbance, mood disturbance, and anxiety; Z99.2 Dependence on renal dialysis; Z79.4 Long term (current) use of insulin

== ENCOUNTER 2019-04-10 12:10 | Emergency (ER) | payer MEDICARE ==
[~2019-04-10] VITALS: Ht 149.9 cm; Wt 68.0 kg
[~2019-04-10 12:10] MED LIST changes: +BRILINTA90 MG PO; +ISOSORB MONO60 M1 PO
[2019-04-10 12:42] LABS: HEMATOCRIT 31.3 % (37.0-47.0); HEMOGLOBIN 10.1 g/dl (12.0-16.0); IMMATURE GRANULOCYTES 0.4 % (0.0-5.0); MEAN CELL VOLUME 96.9 fL CALC (80.0-100.0); MEAN CORPUSCULAR HGB 31.3 pG CALC (26.0-32.0); MEAN CORPUSCULAR HGB CONC 32.3 g/L CALC (32.0-36.0); NEUT# 3.79 thou/uL (2.00-7.15); RED BLOOD COUNT 3.23 mill/uL (4.20-5.60); RED CELL DISTRI WIDTH 14.3 % (11.5-15.5)
[2019-04-10 12:57] LABS: ALBUMIN 3.3 g/dL (3.2-5.0); BILIRUBIN, TOTAL 0.5 mg/dL (0.0-1.4); TOTAL PROTEIN 6.2 g/dL (6.3-8.2)
[2019-04-10 13:09] LABS: CREATININE 2.4 mg/dL (0.5-1.0); POTASSIUM 3.3 mmol/l (3.5-5.1)
[2019-04-10 16:21] LABS: ACT PARTIAL THROMBO TIME 24.1 SECONDS (20.0-32.5); INTERNATIONAL NORMALIZED RATIO 0.9 RATIO (0.7-1.3); PROTHROMBIN TIME 9.7 SECONDS (9.0-12.5)
[2019-04-10 17:10] VITALS: BP 110/61
== END 2019-04-10 17:49 | disposition short-term general hospital (02) ==
LOC: ED 12:10
PROVIDERS: Emergency Medicine
DX: I63.231 Cerebral infarction due to unspecified occlusion or stenosis of right carotid arteries (principal); E11.649 Type 2 diabetes mellitus with hypoglycemia without coma; E11.22 Type 2 diabetes mellitus with diabetic chronic kidney disease; I12.0 Hypertensive chronic kidney disease with stage 5 chronic kidney disease or end stage renal disease; N18.6 End stage renal disease; F03.90 Unspecified dementia, unspecified severity, without behavioral disturbance, psychotic disturbance, mood disturbance, and anxiety; E21.3 Hyperparathyroidism, unspecified; I25.10 Atherosclerotic heart disease of native coronary artery without angina pectoris; G81.94 Hemiplegia, unspecified affecting left nondominant side; R29.721 NIHSS score 21; Z99.2 Dependence on renal dialysis; Z79.4 Long term (current) use of insulin
CPT/HCPCS: J2997